=== PATIENT | female | born 1950 | race Caucasian/White ===

== ENCOUNTER 2016-12-14 14:55 | Emergency (ER) | payer BC, MEDICARE ==
[~2016-12-14] VITALS: Ht 152.4 cm; Wt 54.2 kg
[2016-12-14] MEDS ORDERED: MYCO250C PO (15:18)
[2016-12-14] MEDS ORDERED: NEXI20GR PO (15:18)
[2016-12-14] MEDS ORDERED: ZITHTAB PO (15:18)
[2016-12-14] MEDS ORDERED: PRED10TA2 PO (15:18)
[2016-12-14] MEDS: IBUPROFEN 400 MG TAB PO ONE (15:45)
[2016-12-14] MEDS: ACETAMINOPHEN TAB 650MG DOSE (2X325MG) PO ONE (15:45)
[2016-12-14] MEDS: ALBUTEROL SULFATE 2.5 MG/0.5 ML INH NEB SOLN NEB ONE (16:13)
--- NOTE | 2016-12-14 17:00 | REP ---
PA and lateral chest: Comparison is the chest CT dated 11/26/2011. There is bilateral interstitial coarsening. This appears somewhat worse than on the comparison CT. This is nonspecific and could represent progressive chronic fibrotic interstitial fibrosis or could represent acute disease upon chronic interstitial fibrosis. The findings in the lower lobes are worse in the mid and upper lobes. This is similar to the comparison CT. Cardiac size is mildly enlarged. Cardiac size appears to be slightly larger than on the comparison study. The scott, mediastinum, and bony thorax are unremarkable. Impression: Interstitial coarsening, chronic versus acute on chronic. Cardiomegaly. Signed by Ehsan Lopez MD 12/14/2016 04:51 P
[2016-12-14 17:22] VITALS: BP 113/62
[2016-12-14] MEDS ORDERED: TESS100C PO (17:41)
[2016-12-14] MEDS ORDERED: ALBU83IN INH (17:41)
[2016-12-14] MEDS ORDERED: NEBUMIS2 XX (17:41)
--- NOTE | 2016-12-15 18:50 | ED PDOC ---
Post-Departure Follow-Up certified letter sent to pt re formal read of cxr for fu Jose M Tariq MD Dec 15, 2016 18:50
== END 2016-12-14 18:03 | disposition home or self-care (01) ==
LOC: M ED 14:55
DX: J06.9 Acute upper respiratory infection, unspecified (principal); R50.9 Fever, unspecified; R06.02 Shortness of breath; J84.9 Interstitial pulmonary disease, unspecified; I73.00 Raynaud's syndrome without gangrene; M34.9 Systemic sclerosis, unspecified; Z87.891 Personal history of nicotine dependence; Z79.899 Other long term (current) drug therapy

== ENCOUNTER 2016-12-17 09:23 | Inpatient (IN) | payer MEDICARE, BC ==
[~2016-12-17] VITALS: Ht 152.4 cm; Wt 54.0 kg
[~2016-12-17 09:23] MED LIST: ALBU83IN INH; MYCO250C PO; NEBUMIS2 XX; NEXI20GR PO; PRED10TA2 PO; TESS100C PO; ZITHTAB PO
[2016-12-17] MEDS ORDERED: NS 500 ML IV ONE (10:15)
[2016-12-17] MEDS ORDERED: SODIUM CHLORIDE 0.9% 1000 ML IV ONE (10:15)
[2016-12-17] MEDS ORDERED: methylPREDNISolone INJ 125 MG/2 ML VIAL (J2930) IV ONE (10:15)
--- NOTE | 2016-12-17 10:18 | REP ---
PA and lateral chest: Comparison is 12/14/2016. There is diffuse bilateral interstitial coarsening, unchanged. No definite pleural effusions. The cardiac size is mildly enlarged , unchanged. The scott, mediastinum, and bony thorax are unremarkable and unchanged. Impression: No significant interval change from 12/14/2016. Signed by Ehsan Lopez MD 12/17/2016 10:09 A
[2016-12-17] MEDS ORDERED: IPRATROPIUM 0.5MG/ALBUTEROL 2.5MG INH SOL UD 3ML (DUONEB)(J7620) NEB ONE (10:30)
[2016-12-17 10:34] LABS: BASO % 0.4 % (0.0-1.0); EOS % 0.2 % (0.0-3.0); LARGE UNSTAINED CELL # 0.1 K/mm3 (0.0-0.4); LYMPH # 0.4 K/mm3 (1.5-4.5); LYMPH % 4.7 % (24.0-44.0); MEAN CORPUSCULAR HEMOGLOBIN 31.2 pg (27.0-33.0); MEAN CORPUSCULAR VOLUME 94.7 fl (80.0-96.0); MONO # 0.5 K/mm3 (0.0-0.8); MONO % 5.1 % (0.0-5.0); NEUTROPHILS # 8.3 K/mm3 (1.8-7.7); NEUTROPHILS % 88.7 % (36.0-66.0); PLATELET COUNT, AUTOMATED 135 k/mm3 (150-450); RED CELL DISTRIBUTION WIDTH 12.3 % (11.5-14.5); WHITE BLOOD COUNT 9.4 K/mm3 (4.0-10.0)
[2016-12-17 10:42] LABS: INR 0.92
[2016-12-17 11:10] LABS: ALBUMIN 3.2 GM/DL (3.2-5.2); ALBUMIN/GLOBULIN RATIO 0.97 (1.00-1.93); ALKALINE PHOSPHATASE 52 U/L (45-117); ALT/SGPT 19 U/L (12-78); ANION GAP 7 MEQ/L (8-16); AST/SGOT 28 U/L (15-37); BILIRUBIN,DIRECT 0.2 MG/DL (0.0-0.2); BILIRUBIN,TOTAL 0.6 MG/DL (0.2-1.0); BLOOD UREA NITROGEN 6 MG/DL (7-18); CALCIUM LEVEL 8.2 MG/DL (8.8-10.2); CARBON DIOXIDE LEVEL 28 MEQ/L (21-32); CHLORIDE LEVEL 99 MEQ/L (98-107); CREATININE FOR GFR 0.74 MG/DL (0.55-1.02); GLOMERULAR FILTRATION RATE > 60.0 (>45); GLUCOSE, FASTING 90 MG/DL (80-110); POTASSIUM SERUM 3.3 MEQ/L (3.5-5.1); SODIUM LEVEL 134 MEQ/L (136-145); TOTAL PROTEIN 6.5 GM/DL (6.4-8.2)
[2016-12-17] MEDS ORDERED: ALBU83IN INH (11:51)
[2016-12-17] MEDS ORDERED: PRED10TA2 PO (11:51)
[2016-12-17] MEDS ORDERED: CELL500T PO (11:51)
[2016-12-17] MEDS ORDERED: NEXI20CA PO (11:51)
[2016-12-17] MEDS ORDERED: ALBUTEROL SULFATE 2.5 MG/0.5 ML INH NEB SOLN INH PRN (12:30)
[2016-12-17] MEDS ORDERED: POTASSIUM CHLORIDE 10 MEQ SR TABLET PO ONE (13:30)
[2016-12-17] MEDS ORDERED: ACETAMINOPHEN TAB 650MG DOSE (2X325MG) PO PRN (14:15)
[2016-12-17] MEDS ORDERED: ONDANSETRON 4MG/2ML VIAL (J2405) IV PRN (14:15)
[2016-12-17 14:50] VITALS: BP 141/76
[2016-12-17 15:10] LABS: MAGNESIUM LEVEL 1.6 MG/DL (1.8-2.4)
[2016-12-17] MEDS ORDERED: MAG SULF 1GM/100ML (MAG RUN) 1 GM in APPROPRIATE DILUENT 1 EA IV ONE (16:00)
[2016-12-17] MEDS: NS 1,000 ML IV SCH (16:32)
[2016-12-17] MEDS: IPRATROPIUM 0.5MG/ALBUTEROL 2.5MG INH SOL UD 3ML (DUONEB)(J7620) NEB SCH ×2 (16:57→23:25)
--- NOTE | 2016-12-17 17:00 | HPE ---
DATE OF ADMISSION: 12/17/2016 Time patient was seen was around 1400 hours. Patient's primary care provider is Dr. Jaimes in [place]. Patient's senior property accountant is also in [place], however patient has seen Dr. Somers in the past. CHIEF COMPLAINT: Cough, generalized weakness, and fever. HISTORY OF PRESENT ILLNESS: 66-year-old female with past medical history of scleroderma, interstitial lung disease, esophageal stricture, urinary stress incontinence, ovarian tumor, hypotension, gastroesophageal reflux (GERD), mitral valve prolapse, hypothyroidism, presented with fever and generalized weakness and cough and also diarrhea. Patient stated that symptoms started roughly 7 days ago, while she was traveling in [place], with initially a left-sided earache. She took a Z-Justin and the earache went away, however, 2 days after she developed generalized weakness and a cough. She was so weak that when she came back from [facility], patient needed to be in a wheelchair in the airport. She visited urgent care roughly 4 days ago and had a negative x-ray and was given albuterol to help with her cough and mild shortness of breath. However, her symptoms worsened, she started developing a fever since Wednesday and also started to develop diarrhea and she stated yesterday she had at least five episodes of diarrhea which were clear, no blood. She also has been coughing up sputum which was dark yellow and no blood. She also feels nauseous and generalized weakness. In addition, patient's has been having a cough and sore throat started today. Otherwise, she also reports to sweating during the night and dry mouth and also she was unable to lay down flat at night due to secretions in the lungs and she described it as a gurgling sound if she lays flat. She denies any exposure to exotic animals. Patient does not have pets. Denies any neck pain or headache. Denies confusion or loss of consciousness. Denies any urinary urgency, any dysuria, any blood in the urine. ALLERGIES: No known drug allergies, however patient does have seasonal allergies. HOME MEDICATIONS: Including: - albuterol 2.5 mg inhalation every 4 hours as needed - Nexium 20 mg one tablet by mouth daily - CellCept 2000 mg one tablet by mouth twice a day - prednisone 10 mg one tablet by mouth daily PAST MEDICAL HISTORY: Includin. Systemic scleroderma. 2. Interstitial lung disease. 3. Esophageal stricture. 4. Urinary stress incontinence. 5. Ovarian tumor. 6. Hypotension. 7. Gastroesophageal reflux disease (GERD). 8. Mitral valve prolapse. 9. Hypothyroidism. PAST SURGICAL HISTORY: Including esophageal dilatation, ovarian tumor removal, cholecystectomy, cataract surgery, carpal tunnel surgery, and bunion removal. SOCIAL HISTORY: Patient denies any smoking, quit in 1983, smoked for roughly 18 years, two packs per day. Admits to occasional drinking. Denies any recreational drug use. Patient does not have any pets at home. Currently lives with her . FAMILY HISTORY: Admits to mother from leukemia in her 70s and father with dementia in his 80s. REVIEW OF SYSTEMS: GENERAL: Patient admits to recently traveling to [place] this month. Denies any sick contacts or weight loss. Admits to night sweats. Admits to fever and chills. Admits to rigors. Denies any headaches. HEENT: Denies any changes with vision, smell, hearing, or taste. Her ear was feeling ortiz roughly a week ago, however it has resolved. Denies any trouble swallowing, however she does have a history of esophageal stricture, required dilatation 7 years ago. CARDIOVASCULAR: Denies any chest pain. Admits to mild shortness of breath at baseline, it has been slightly worse now. Denies any palpitation. Admits to using two pillows at night. Denies any swelling in the lower extremities. PULMONARY: Admits to mild trouble breathing at baseline and it has been getting mildly worse. Admits the trouble breathing was exertional. Patient admits to trouble laying flat at night and it would cause her to make gurgling sounds and unable to cough up her secretions. Patient has been sleeping on a recliner last night. GASTROINTESTINAL (GI): Denies any abdominal pains, however admits to nausea. Denies any vomiting. Admits to watery diarrhea for the past 3 days, at least five times yesterday. Denies any blood in the stool. GENITOURINARY (): Denies any urinary urgency, however patient does have stress incontinence at baseline. Denies any blood in the urine. MUSCULOSKELETAL: Admits to generalized weakness. Denies any joint pain. ENDOCRINE: Admits to feeling hot currently, also admits to chills and rigors earlier. HEMATOLOGIC/ONCOLOGIC: Admits to easy bruising. Denies any bleeding anywhere. PSYCHIATRIC: Denies any anxiety or depression. NEUROLOGIC: Admits to generalized weakness. Denies any weakness on one side. Denies any numbness or tingling or any changes with vision. Denies any confusion. PHYSICAL EXAMINATION: VITAL SIGNS: Temperature was 100.1 in the emergency room (ER). Three days ago patient's temperature was 100.9. Heart rate 101, respirations 20, blood pressure 189/82, oxygen saturating at 95% on room air. GENERAL: Patient is a pleasant, elderly female who was alert, awake, oriented times three. Does not appear to be in distress. Laying comfortably in bed with head elevated at 30 degrees. HEENT: Normocephalic, atraumatic. Extraocular motors intact. Mucous moist. Neck supple. No neck lymphadenopathy. Neck was painful to palpation. Patient's face does appear to be flushed with slight erythema. CARDIOVASCULAR: Regular rate and rhythm. Normal S1, S2. Slightly distant heart sounds due to increased anteroposterior (AP) diameter. LUNGS: Diffuse crackles and rhonchi in bilateral lung lang posteriorly and anteriorly, slightly reduced on the right side. ABDOMEN: Positive bowel sounds. Soft, nontender, nondistended. No peritoneal signs. No ecchymosis. No organomegaly. No palpable mass. EXTREMITIES: No edema, clubbing, or cyanosis. SKIN: Warm and dry. NEUROLOGIC: Cranial nerves II-XII intact. No focal neurological deficit. Muscle strength was 5/5 in bilateral upper and lower extremities. LABORATORY DATA: WBC 9.4, hemoglobin 13.5, hematocrit 40.9, with a platelet count of 135, MCV was 94.7, neutrophil percentage was 88.7. Sodium 134, potassium 3.3, chloride 99, bicarbonate 29, anion gap was 7, BUN 6, creatinine 0.74, GFR greater than 60, fasting glucose 90, calcium 8.2, magnesium 1.6, total bilirubin was 0.6, direct bilirubin 0.2, AST 28, ALT 19, alkaline phosphatase 52, total CK 133, CK-MB 1, troponin 0.03, BNP was 111, total protein 6.5, albumin 3.2, TSH 1.17. Patient's blood culture times two is pending. Patient had a gastrointestinal (GI) panel down in the emergency room which shows negative. Patient had a sputum gram stain and culture shows a few gram-positive cocci in pairs and clusters and moderate epithelial cells and patient had a respiratory panel done in the emergency room which shows influenza AH3. Patient had a posteroanterior (PA) and lateral chest x-ray done in the emergency room which shows no significant changes from 12/14/2016. There is diffuse bilateral interstitial coarsening and it was unchanged. ASSESSMENT AND PLAN: 66-year-old female with past medical history most significantly for systemic scleroderma and interstitial lung disease and esophageal stricture who is a resident of [place] presented with: 1. Viral illness and less likely atypical pneumonia. Patient had recent traveling to [place] and symptoms started right before she came back. Patient's respiratory panel done in the emergency room shows influenza AH3. Blood culture times two is pending. Gram stain and culture are pending. Patient also has diarrhea, therefore IV fluids have been started at 80 mL/hour. Patient may start on clear liquid diet due to nausea and will advance likely tomorrow. In addition, patient has been checked for chlamydia and Legionella which are pending, will follow. Continue DuoNebs. Patient has also been placed on Solu-Medrol 80 mg IV every 12 hours, will continue. Will also start patient on Mucinex. 2. Poor mucociliary clearance, likely due to infection and underlying interstitial lung disease. Will place patient on aspiration precautions and continue Mucinex and also Acapella and incentive spirometry. 3. Diarrhea, likely secondary to viral illness due to influenza A. Continue IV fluids and for patient's nausea patient has been started on clear liquid diet. Will monitor for possible aspiration. 4. Thrombocytopenia with platelets of 135, likely secondary to viral illness. Will continue to monitor. 5. Hypokalemia and also hypomagnesemia, likely secondary to diarrhea, which have been repleted. Will continue to follow. 6. Hypothyroidism. Thyroid stimulating hormone (TSH) has been normal. Patient is not on supplement at home. Will continue to follow. 7. History of systemic scleroderma and also interstitial lung disease. Will continue CellCept. Patient's home steroid has been switched to IV steroid. 8. History of gastroesophageal reflux disease (GERD). Continue home proton pump inhibitor (PPI). 9. Esophageal stricture. Continue patient on aspiration precaution. 10. Urinary stress incontinence. Currently stable. 11. Ovarian tumor status post oophorectomy. Stable. 12. Deep venous thrombosis (DVT) prophylaxis with heparin 5000 units subcutaneously every 12 hours and also sequential compression device (SCD) and thromboembolism deterrents (TEDs). 13. Fluid, electrolytes, and nutrition. Patient is on normal saline at a rate of 80 mL/hour. Will check patient's magnesium and potassium daily, keep potassium at 4, and patient is on clear liquid diet for now and will likely advance as tolerated. DISPOSITION: Patient has a viral illness secondary to influenza A. Will monitor for any signs of encephalopathy and continue supportive therapy at this point. Patient has been discussed with attending doctor, Dr. Harmon. My preceptor for this patient encounter was Dr. Robe Harmon. The preceptor was physically present in the building during the encounter and was fully available. As needed, all aspects of the patient interview, examination, medical decision making process, and medical care plan development were reviewed and approved by the preceptor. The preceptor is aware and concurs with the plan as stated in the body of this note and will attest to such by his/her cosignature.
--- NOTE | 2016-12-17 19:09 | ECGEPIP ---
Stationary ECG Study [facility] - ED Test Date: 2016-12-17 Pat Name: RUBI BIRD Department: Room: - Gender: F Guest Relations Associate: melody : [id number] Requested By: Marifer Spaulding Order Number: [id number] Reading MD: Crescencio Burroughs Measurements Intervals [place] Rate: 115 P: -3 DC: 148 QRS: -41 QRSD: 81 T: -11 QT: 318 QTc: 440 Interpretive Statements SINUS TACHYCARDIA LEFT AXIS DEVIATION NSSTW ABNORMALITIES PATTERN CONSISTENT WITH PULMONARY DISEASE NO PRIORS Electronically Signed On 12-17-2016 19:09:04 EDT by Crescencio Burroughs
[2016-12-17] MEDS: MYCOPHENOLATE MOFETIL 250 MG CAP (J7517) PO SCH ×2 (19:40→23:23)
[2016-12-17] MEDS: HEPARIN SOD (PORCINE) 5000 UNITS/ML VIAL SC SCH (20:30)
[2016-12-17] MEDS: PANTOPRAZOLE 20 MG TAB PO SCH (20:30)
[2016-12-17] MEDS: guaiFENesin ER 600 MG TAB PO SCH (20:30)
[2016-12-17 22:00] VITALS: BP 135/82
[2016-12-17] MEDS: methylPREDNISolone INJ 125 MG/2 ML VIAL (J2930) IV SCH (23:57)
[2016-12-18] MEDS: NS 1,000 ML IV SCH ×2 (05:47→17:33)
[2016-12-18 06:00] VITALS: BP 154/69
[2016-12-18 06:06] LABS: MEAN CORPUSCULAR HEMOGLOBIN 31.2 pg (27.0-33.0); MEAN CORPUSCULAR HGB CONC 32.8 g/dl (32.0-36.5); MEAN CORPUSCULAR VOLUME 94.9 fl (80.0-96.0); RED CELL DISTRIBUTION WIDTH 12.6 % (11.5-14.5); WHITE BLOOD COUNT 7.5 K/mm3 (4.0-10.0)
[2016-12-18 06:07] LABS: ANION GAP 10 MEQ/L (8-16); BLOOD UREA NITROGEN 9 MG/DL (7-18); CARBON DIOXIDE LEVEL 23 MEQ/L (21-32); CHLORIDE LEVEL 108 MEQ/L (98-107); CREATININE FOR GFR 0.54 MG/DL (0.55-1.02); GLOMERULAR FILTRATION RATE > 60.0 (>45); GLUCOSE, FASTING 125 MG/DL (80-110); MAGNESIUM LEVEL 2.4 MG/DL (1.8-2.4); POTASSIUM SERUM 3.7 MEQ/L (3.5-5.1); SODIUM LEVEL 141 MEQ/L (136-145)
[2016-12-18] MEDS: IPRATROPIUM 0.5MG/ALBUTEROL 2.5MG INH SOL UD 3ML (DUONEB)(J7620) NEB SCH ×3 (07:20→23:51)
[2016-12-18] MEDS: LACTOBACILLUS ACIDOPHILUS CAP (BACID) PO SCH ×2 (09:47→20:23)
[2016-12-18] MEDS: HEPARIN SOD (PORCINE) 5000 UNITS/ML VIAL SC SCH ×2 (09:48→20:24)
[2016-12-18] MEDS: guaiFENesin ER 600 MG TAB PO SCH ×2 (09:48→20:23)
[2016-12-18] MEDS: MYCOPHENOLATE MOFETIL 250 MG CAP (J7517) PO SCH ×2 (09:54→20:23)
[2016-12-18] MEDS: OSELTAMIVIR PHOSPHATE 75 MG CAP (TAMIFLU) PO SCH ×2 (09:54→20:23)
[2016-12-18] MEDS: PANTOPRAZOLE 20 MG TAB PO SCH (09:54)
[2016-12-18] MEDS: methylPREDNISolone INJ 125 MG/2 ML VIAL (J2930) IV SCH ×2 (10:55→23:30)
--- NOTE | 2016-12-18 12:42 | IPN ---
DATE: 12/18/2016 Time patient was seen was at 11:00 a.m. The patient has been seen and examined at bedside. No acute events overnight. The patient is feeling better. Admits to breathing better. Denies any chest pain. The cough has improved as well. The patient did not have any fever overnigth. She denies any abdominal pains, nausea, vomiting, or constipation. The patient still admits to diarrhea, about three times since yesterday. The patient still feels weak and does not feel ready to go home today. PHYSICAL EXAMINATION: Vital Signs: Temperature 96.8. Pulse 66. Respirations 22. Blood pressure 154/69. Oxygen satting at 92% on room air. General: The patient is a pleasant, elderly female who was not in any distress, looks tired, with head elevated at 30 degrees. HEENT: Normocephalic, atraumatic. Extraocular muscles intact. Mucosa moist. Neck supple. No neck lymphadenopathy. The patient's face looked less flushed today. Cardiovascular: Regular rate and rhythm. S1, S2. No murmurs, rubs or gallops. Lungs: There were still some crackles and rhonchi; however, much reduced compared to the day prior. Abdomen: Positive bowel sounds. Soft. Nontender. Nondistended. No peritoneal signs. No ecchymosis. Extremities: No edema, clubbing or cyanosis. Skin: Warm and dry. Neurologic: Cranial nerves II through XII intact. No focal neurological deficit. LABS: WBC 7.5, hemoglobin 12.2, hematocrit 37.2 with a platelet count of 111 and MCV of 94.9. Sodium 141, potassium 3.7, chloride 108, bicarbonate 23, BUN 9, creatinine 0.54, GFR greater than 60, fasting glucose 125, calcium 8, magnesium 2.4. The patient's pneumonia panel is currently pending. Urine Legionella is pending. The patient's respiratory panel shows only influenza AH3. However, according to results, there is increased severity and mortality with current type of influenza. There is no new imaging. ASSESSMENT AND PLAN: 66-year-old female with past medical history of systemic scleroderma, interstitial lung disease and esophageal stricture who is a resident of [place] coming here during the summer who presented with: 1. Viral illness due to influenza. Less likely to be atypical pneumonia. Status post recent traveling to [place]. Will continue Solu-Medrol 80 mg IV every 12 hours. Continue Mucinex. Tamiflu has been started today. The patient will be on it for five more days. The patient's diet has been advanced to full liquid diet and will advance as tolerated. The patient's Chlamydia and Legionella panel are pending. 2. Poor mucociliary clearance due to interstitial lung disease which has much improved today on Acapella and incentive spirometry and also Mucinex. 3. Diarrhea, likely secondary to viral illness due to influenza A. The patient requested a probiotic today which has been added. Otherwise, the patient's nausea has improved. Therefore, she has been advanced to a full liquid diet. Still on aspiration precautions. 4. Thrombocytopenia. Resolved. Likely secondary to viral illness. 5. Hypokalemia and hypomagnesemia. Resolved. Likely secondary to diarrhea. 6. Hypothyroidism. TSH normal. Not on any home supplement. 7. Systemic scleroderma and also interstitial lung disease. Continue Cellcept and home by mouth steroids has been switched to oral steroid for now due to possible exacerbation of patient's chronic obstructive pulmonary disease (COPD) and interstitial lung disease. 8. History of gastroesophageal reflux disease (GERD). Continue PPI. 9. Esophageal stricture. Continue aspiration precautions. The patient is on a full liquid diet. 9. Urinary stress incontinence. Stable. 10. Ovarian tumor, status post oophorectomy. Stable. 11. Deep vein thrombosis (DVT) prophylaxis. On heparin 5000 units subcutaneously every 12 hours. Also sequential compression device (SCD) and thromboembolic deterrent stockings (TEDS). 12. Fluid, electrolytes and nutrition. The patient is still on normal saline at a rate of 80 mL/hr. Will consider to reduce it. Potassium and magnesium have been normal today. The patient has been advanced to a full liquid diet and will advance as tolerated from now on. 13. Disposition. The patient has severe form of influenza A. Will continue to monitor. Possible discharge tomorrow or day after. The patient has been discussed with the attending doctor, Dr. Harmon. My preceptor for this patient encounter was Dr. Robe Harmon. The preceptor was physically present in the building during the encounter and was fully available. As needed, all aspects of the patient interview, examination, medical decision making process, and medical care plan development were reviewed and approved by the preceptor. The preceptor is aware and concurs with the plan as stated in the body of this note and will attest to such by his/her cosignature.
[2016-12-18 13:55] VITALS: BP 199/81
[2016-12-18 14:00] VITALS: BP_SYST 162; BP_SYST 180; BP_DIAS 77; BP_DIAS 88
[2016-12-18 14:30] VITALS: BP 180/88
[2016-12-18 22:00] VITALS: BP 175/88
[2016-12-19 05:55] LABS: MEAN CORPUSCULAR HGB CONC 32.6 g/dl (32.0-36.5); MEAN CORPUSCULAR VOLUME 94.9 fl (80.0-96.0); RED CELL DISTRIBUTION WIDTH 12.5 % (11.5-14.5); WHITE BLOOD COUNT 15.4 K/mm3 (4.0-10.0)
[2016-12-19 06:00] VITALS: BP 162/75
[2016-12-19 06:04] LABS: ANION GAP 10 MEQ/L (8-16); BLOOD UREA NITROGEN 13 MG/DL (7-18); CALCIUM LEVEL 8.1 MG/DL (8.8-10.2); CARBON DIOXIDE LEVEL 23 MEQ/L (21-32); CHLORIDE LEVEL 108 MEQ/L (98-107); CREATININE FOR GFR 0.48 MG/DL (0.55-1.02); GLOMERULAR FILTRATION RATE > 60.0 (>45); GLUCOSE, FASTING 123 MG/DL (80-110); MAGNESIUM LEVEL 2.3 MG/DL (1.8-2.4); POTASSIUM SERUM 3.4 MEQ/L (3.5-5.1); SODIUM LEVEL 141 MEQ/L (136-145)
[2016-12-19] MEDS: IPRATROPIUM 0.5MG/ALBUTEROL 2.5MG INH SOL UD 3ML (DUONEB)(J7620) NEB SCH (07:17)
[2016-12-19] MEDS ORDERED: MUCI600T31 PO (08:05)
[2016-12-19] MEDS ORDERED: PRED20TA PO (08:05)
[2016-12-19] MEDS ORDERED: NORV5TAB PO (08:05)
[2016-12-19] MEDS ORDERED: RISATAB3 PO (08:05)
[2016-12-19] MEDS ORDERED: OSEL75CA2 PO (08:05)
[2016-12-19] MEDS ORDERED: amLODIPine 5 MG TAB PO ONE (08:15)
[2016-12-19] MEDS ORDERED: POTASSIUM CHLORIDE 10 MEQ SR TABLET PO ONE (08:15)
[2016-12-19 08:32] VITALS: BP 155/82
[2016-12-19] MEDS ORDERED: predniSONE 20 MG TAB PO SCH (09:00)
[2016-12-19] MEDS: LACTOBACILLUS ACIDOPHILUS CAP (BACID) PO SCH (09:19)
[2016-12-19] MEDS: MYCOPHENOLATE MOFETIL 250 MG CAP (J7517) PO SCH (09:19)
[2016-12-19] MEDS: HEPARIN SOD (PORCINE) 5000 UNITS/ML VIAL SC SCH (09:20)
[2016-12-19] MEDS: OSELTAMIVIR PHOSPHATE 75 MG CAP (TAMIFLU) PO SCH (09:20)
[2016-12-19] MEDS: guaiFENesin ER 600 MG TAB PO SCH (09:20)
[2016-12-19] MEDS: PANTOPRAZOLE 20 MG TAB PO SCH (09:20)
[2016-12-19 09:27] VITALS: BP 155/82
[2016-12-19 10:50] VITALS: BP 152/72
--- NOTE | 2016-12-19 10:53 | DSES ---
DATE OF ADMISSION: 12/17/2016 DATE OF DISCHARGE: 12/19/2016 Time patient was seen was at around 8:30 a.m. Admission diagnoses were: 1. Viral illness likely secondary to influenza A, less likely atypical pneumonia. 2. Poor mucociliary clearance. 3. Interstitial lung disease. 4. Diarrhea likely secondary to viral illness. 5. Thrombocytopenia likely secondary to viral illness. 6. Hypokalemia and hypomagnesemia. 7. Questionable history of hypothyroidism. 8. History of systemic scleroderma and also interstitial lung disease. 9. History of gastroesophageal reflux disease (GERD). 10. Esophageal stricture. 11. Urinary stress incontinence. 12. Ovarian tumor status post oophorectomy. Discharge diagnoses includin. Viral illness secondary to influenza. 2. Poor mucociliary clearance with history of interstitial lung disease. 3. Diarrhea secondary to influenza A. 4. Thrombocytopenia. 5. Hypokalemia and hypomagnesemia due to diarrhea. 6. Hypothyroidism, which is questionable. 7. Systemic scleroderma and interstitial lung disease. 8. Gastroesophageal reflux disease. 9. Esophageal stricture. 10. Urinary stress incontinence. 11. Ovarian tumor. 12. Hypertension. CONSULTANTS: None. PROCEDURES AND IMAGING: Patient had a 2-view chest x-ray in the emergency room. It shows no significant changes from 12/14/2016. There is no definite pleural effusion. There is diffuse bilateral interstitial coarsening, which was unchanged. HISTORY OF PRESENT ILLNESS (HPI): 66-year-old female with past medical history of scleroderma, interstitial lung disease, esophageal stricture, urinary stress incontinence, ovarian tumor, hypotension, GERD, mitral valve prolapse, hypothyroidism, presented with fever and generalized weakness and cough, also diarrhea. Patient stated the symptoms started roughly 7 days ago while she was traveling in [place] with an initial left-sided earache. She took a Z-Justin and the earache went away. However, 2 days later, she developed generalized weakness and cough. She was so weak that when she came back from [place], patient needed to be in a wheelchair in the airport. She visited urgent care roughly 4 days ago and had a negative x-ray, and was given albuterol to help with her breathing and cough. However, her symptoms worsened and she started developing a fever since Wednesday and started to develop diarrhea, and also yesterday, she had five episodes of diarrhea in a one day, which was clear and no blood. She has been coughing up sputum, which was dark yellow, also nonbloody. She feels nauseous and generalized weakness. In addition, the patient's has been having a cough and sore throat that started on the day of admission. Otherwise, she also reports feeling sweaty during the night and also dry mouth. Also, she was unable to lay down flat at night due to secretion in the lungs. She described it as a gurgling sound if she lays flat. She denies any exposure to exotic animal. She does not have any pets. Denies any occupational exposure in the past. Denies any neck pain or headache. Denies confusion or loss of consciousness. Denies any urinary urgency or dysuria, any blood in urine. HOSPITALIST COURSE: On day of admission, patient had a respiratory panel done in the emergency room, which was positive for influenza AH3. Patient's workup for atypical pneumonia was underway at the same time she was started with high dose steroid, Solu-Medrol 80 mg every 12 hours and was also given boluses of fluid. We have started her on Mucinex as well, and put her on Acapella and incentive spirometry. Also started her on IV fluid due to diarrhea. Potassium and magnesium was repleted. Tamiflu was started on the next day. Patient continued to improve and on 12/19/2016, patient believed she is strong enough to go home. Therefore, on 12/19/2016, patient has been discharged. Discharged back to home. Discharge condition stable. Discharge medications including new medications: - Norvasc 5 mg by mouth daily for 30 days (hold if systolic blood pressure is less than 140) - Mucinex 60 mg by mouth twice a day - oseltamivir 75 mg one tablet by mouth twice a day - prednisone 40 mg by mouth daily for 2 days, then 20 mg by mouth daily for 7 days, then patient should resume the home dose 10 mg by mouth daily - probiotics one tablet by mouth twice a day Continue home medications with: - albuterol 2.5 mg inhalation every 4 hours as needed - Nexium 20 mg by mouth daily - CellCept 2000 mg one tablet by mouth twice a day - prednisone 10 mg one tablet by mouth daily FOLLOWUP: Patient should followup with primary care physician as soon as possible. Patient currently is traveling from [place]. Therefore, it would be beneficial if she would return sooner to [place], and also, if she developed additional shortness of breath that, if not resolved in a short time, the patient should go to the emergency room. Otherwise, patient has been discussed with attending doctor, Dr. Harmon. My preceptor for this patient encounter was Robe Harmon MD. The preceptor was physically present in the building during the encounter and was fully available. As needed, all aspects of the patient interview, examination, medical decision making process, and medical care plan development were reviewed and approved by the preceptor. The preceptor is aware and concurs with the plan as stated in the body of this note and will attest to such by his/her co-signature. JULIAN
[2016-12-20] MEDS ORDERED: amLODIPine 5 MG TAB PO SCH (09:00)
== END 2016-12-19 12:19 | disposition home or self-care (01) | DRG 194 ==
LOC: M ED 09:23 → M ED INP 12:16 → M MSPAV 14:52
PROVIDERS: ADMIT Internal Medicine; ATTEND Internal Medicine
DX: J10.1 Influenza due to other identified influenza virus with other respiratory manifestations (principal); J84.9 Interstitial pulmonary disease, unspecified; M34.9 Systemic sclerosis, unspecified; N39.3 Stress incontinence (female) (male); E87.6 Hypokalemia; E83.42 Hypomagnesemia; I10 Essential (primary) hypertension; K21.9 Gastro-esophageal reflux disease without esophagitis; D69.6 Thrombocytopenia, unspecified; I34.1 Nonrheumatic mitral (valve) prolapse; E03.9 Hypothyroidism, unspecified; R19.7 Diarrhea, unspecified; J30.2 Other seasonal allergic rhinitis; Z79.52 Long term (current) use of systemic steroids; Z79.899 Other long term (current) drug therapy; Z87.891 Personal history of nicotine dependence